=== PATIENT | female | born 2000 | race Caucasian/White ===

== ENCOUNTER 2021-03-26 09:08 | Emergency (ER) | payer OTHER ==
[~2021-03-26 09:08] MED LIST: ELIMITE 5% CREA60 GM TOP
[2021-03-26 11:52] LABS: HEMOGLOBIN 14.1 gm/dl (12.3-15.3); RED BLOOD COUNT 4.59 M/UL (4.00-5.10); WHITE BLOOD COUNT 8.9 K/UL (4.5-11.0)
[2021-03-26 12:14] LABS: BUN/CREATININE RATIO 24 (0-10)
[2021-03-26] MEDS ORDERED: HYDROCODON-ACE1 EAC4 PO (13:07)
[2021-03-26] MEDS ORDERED: BACTROBAN OINT22 GM TOP (13:07)
== END 2021-03-26 14:09 | disposition home or self-care (01) ==
LOC: ER1 09:08
PROVIDERS: Emergency Medicine
DX: S20.212A Contusion of left front wall of thorax, initial encounter (principal); S30.1XXA Contusion of abdominal wall, initial encounter; S80.11XA Contusion of right lower leg, initial encounter; V43.52XA Car driver injured in collision with other type car in traffic accident, initial encounter; Y92.410 Unspecified street and highway as the place of occurrence of the external cause
CPT/HCPCS: 70450; 71260; 72125; 73590; 80053; 81001; 84703; 85025; 90471; 90715; 99284; Q9967